=== PATIENT | male | born 1955 | race Caucasian/White ===

== ENCOUNTER 2017-07-02 13:46 | Emergency (ER) | payer OTHER ==
[2017-07-02 14:20] VITALS: TEMP 98.7; BMI 33.9
--- NOTE | 2017-07-02 16:26 | PDOC ---
History of Present Illness - General Chief Complaint: Wound Stated Complaint: WOUND CARE Time Seen by Provider: 07/02/17 14:43 History Source: Patient Exam Limitations: No Limitations - History of Present Illness Initial Comments: 07/02/17 16:05 62-year-old male presents to the ED with peeling blistering skin under his feet for the past few months and states was on nystatin that ran out about 3 weeks ago and now states it hurts to walk or with the feet. Patient states was putting nystatin on night and again in the morning wearing socks throughout the day. Patient denies fever, chills, drainage or other areas with similar presentation. Timing/Duration: reports: constant Severity: Yes: mild Location: reports: feet Respiratory Risk Factors: reports: no cause identified Associated Symptoms: reports: blisters, change in skin texture Past History - Travel Traveled outside of the country in the last 30 days: No - Past Medical History Allergies/Adverse Reactions: Allergies Allergy/AdvReac Type Severity Reaction Status Date / Time No Known Allergies Allergy Verified 10/01/13 10:35 Home Medications: Ambulatory Orders Amlodipine Besylate [Norvasc -] 10 mg PO DAILY 10/01/13 Aripiprazole [Abilify -] 15 mg PO HS 10/01/13 Atorvastatin Ca [Lipitor] 20 mg PO DAILY 10/01/13 Diazepam [Valium] 5 mg PO HS 10/01/13 Furosemide [Lasix -] 40 mg PO BID 10/01/13 Sitagliptin Phosphate [Januvia -] 25 mg PO DAILY 10/01/13 Tamsulosin HCl 0.4 mg PO DAILY 10/01/13 Fluvoxamine Maleate 50 mg PO BID 07/02/17 Miconazole Nitrate [Lotrimin AF] 1 spray TP BID #1 bottle 07/02/17 Mirtazapine [Remeron -] 15 mg PO HS 07/02/17 Sennosides [Senna] 8.6 mg PO HS 07/02/17 Sitagliptin Phosphate [Januvia] 25 mg PO DAILY 07/02/17 Diabetes: Yes (NIDDM) HTN: Yes Hypercholesterolemia: Yes Psychiatric Problems: Yes (schizoaffective) - Suicide/Smoking/Psychosocial Hx Smoking Status: Yes Smoking History: Current every day smoker Have you smoked in the past 12 months: Yes Number of Cigarettes Smoked Daily: 1 Information on smoking cessation initiated: No Hx Alcohol Use: No Drug/Substance Use Hx: No Substance Use Type: None Patient Lives Alone: No Lives with/in: assisted living Review of Systems - Review of Systems Able to Perform ROS?: No Is the patient limited Turkmen proficient: No Constitutional: No: Symptoms Reported HEENTM: No: Symptoms Reported Integumentary: Yes: Erythema, Other (blister) *Physical Exam - Vital Signs Last Vital Signs Temp Pulse Resp BP Pulse Ox 98.7 F 74 20 125/67 94 L 07/02/17 14:18 07/02/17 14:18 07/02/17 14:18 07/02/17 14:18 07/02/17 14:18 - Physical Exam General Appearance: Yes: Nourished, Appropriately Dressed. No: Apparent Distress Integumentary: positive: Other (Peeling moist bilateral soles of feet with a moist callus to the sole of right foot. No signs of active infection.) Neurologic: positive: Motor Strength 5/5 Medical Decision Making - Medical Decision Making 07/02/17 16:27 Patient for evaluation of continual peeling feet with whitish area to bottom of foot. Patient on exam had findings of tinea pedis along with poor nail care. Patient will be discharged home with lotrimin spray with supportive care instructions to allow feet to breathe and do not wear socks throughout the day and night. *DC/Admit/Observation/Transfer Diagnosis at time of Disposition: Tinea pedis Qualifiers: Laterality: bilateral Qualified Code(s): B35.3 - Tinea pedis - Discharge Dispostion Disposition: HOME Condition at time of disposition: Good - Prescriptions Prescriptions: Miconazole Nitrate [Lotrimin AF] 1 spray TP BID #1 bottle - Patient Instructions Printed Discharge Instructions: DI for Athlete's Foot Additional Instructions: Please use Lotrimin as prescribed and do not use socks throughout the night allowing feet to breathe. Also dry be completely allowing them to air dry for least 15 minutes prior to applying spray twice a day.
[2017-07-02 17:22] VITALS: BP 138/76; PULSE 72
== END 2017-07-02 18:46 | disposition home or self-care (01) ==
LOC: JER 13:46
DX: B35.3 Tinea pedis (principal); I10 Essential (primary) hypertension; E11.9 Type 2 diabetes mellitus without complications; Z79.84 Long term (current) use of oral hypoglycemic drugs; E78.00 Pure hypercholesterolemia, unspecified; F25.9 Schizoaffective disorder, unspecified; F17.210 Nicotine dependence, cigarettes, uncomplicated
CPT/HCPCS: 99282-25